=== PATIENT | male | born 1995 | race African-American/Black ===

== ENCOUNTER 2019-06-29 17:58 | Emergency (ER) | payer SELFPAY ==
[~2019-06-29] VITALS: Ht 180.3 cm; Wt 88.5 kg
[2019-06-29 18:35] VITALS: BP 138/66
[2019-06-29 19:55] LABS: INFLUENZA A PATIENT NEGATIVE (NEGATIVE); INFLUENZA B PATIENT NEGATIVE (NEGATIVE)
[2019-06-29] MEDS ORDERED: AZIT250T6 PO (20:59)
--- NOTE | 2019-06-29 20:59 | PHYS DOC ---
Past Medical History Past Medical History: No Pertinent History (MAGO SIMS APRN) Past Surgical History: No Surgical History (MAGO SIMS APRN) Alcohol Use: None Drug Use: None (MAGO SIMS APRN) Attending Signature I have participated in the care of this patient and I have reviewed and agree with all pertinent clinical information above including history, exam, and recommendations. (KARRI LAWTON MD) Adult General Chief Complaint Chief Complaint: FLU SYMPTOM HPI HPI Patient is a 23 year old male who presents with nausea, cough, chest congestion and chills. Patient states is all started today. Patient states he's been taking Mucinex today. (MAGO SIMS APRN) Review of Systems Review of Systems Constitutional: fever or chills [] HENT: nasal congestion or sore throat [] Respiratory: cough or denies shortness of breath [] All other systems were reviewed and found to be within normal limits, except as documented in this note. (MAGO SIMS APRN) Allergies Allergies Allergies Coded Allergies Type Severity Reaction Last Updated Verified No Known Drug Allergies 06/29/19 No (KARRI LAWTON MD) Physical Exam Physical Exam Constitutional: Well developed, well nourished, no acute distress, non-toxic appearance. [] HENT: Normocephalic, atraumatic, bilateral external ears normal, oropharynx moist, no oral exudates, nose normal. Bilateral Tympanics pink. [] Eyes: PERRLA, EOMI, conjunctiva normal, no discharge. [] Neck: Normal range of motion, no tenderness, supple, no stridor. [] Cardiovascular:Heart rate regular rhythm, no murmur [] Lungs & Thorax: Bilateral breath sounds clear to auscultation [] Abdomen: Bowel sounds normal, soft, no tenderness, no masses, no pulsatile masses. [] Skin: Warm, dry, no erythema, no rash. [] Back: No tenderness, no CVA tenderness. [] Extremities: No tenderness, no cyanosis, no clubbing, ROM intact, no edema. [] Neurologic: Alert and oriented X 3, normal motor function, normal sensory function, no focal deficits noted. [] Psychologic: Affect normal, judgement normal, mood normal. [] (MAGO SIMS APRN) Current Patient Data Vital Signs Vital Signs Date Time Temp Pulse Resp B/P (MAP) Pulse Ox O2 Delivery O2 Flow Rate FiO2 06/29/19 18:35 98.5 70 14 138/66 (90) 97 Room Air 98.5 (KARRI LAWTON MD) Lab Values Laboratory Tests Test 06/29/19 18:38 Influenza Type A Antigen Negative (NEGATIVE) Influenza Type B Antigen Negative (NEGATIVE) (KARRI LAWTON MD) EKG EKG [] (MAGO SIMS APRN) Radiology/Procedures Radiology/Procedures [] (MAGO SIMS APRN) Impressions: [facility] [address] [address] IMAGING REPORT Signed PATIENT: MARQUIS CHRISTIANA LACCOUNT: [id number] : 1995 LOCATION: ER AGE: 23 SEX: M EXAM STATUS: DEP ER ORD. PHYSICIAN: MAGO SIMS APRN REASON: COUGH PROCEDURE: CHEST PA & LATERAL EXAM: PA and Lateral Views of the Chest DATE: 06/29/2019 8:02 PM INDICATION: Cough COMPARISON: No Prior FINDINGS: The heart is not enlarged. Mediastinal and hilar contours are normal. No focal parenchymal airspace opacity. No pleural effusion or pneumothorax. IMPRESSION: 1. No radiographic evidence for acute cardiopulmonary process. Electronically signed by: Jovan Cheung MD (06/29/2019 10:47 PM) [facility] DICTATED and SIGNED BY: JOVAN CHEUNG MD DATE: 06/29/19 4387 (MAGO SIMS APRN) Course & Med Decision Making Course & Med Decision Making Influenza negative. Bilateral tympanic syrup pink in color. Lungs are clear to auscultation all lobes. Throat is pink without exudates or swelling. Alert and oriented. Ambulatory with a steady gait. Speaks in full clear sentences. Skin pink warm and dry. Vital signs within normal limits. Patient denies nausea, vomiting, syncope, headache, visual changes, numbness or tingling, shortness of breath, chest pain, abdominal pain, diarrhea. Chest x-ray shows no acute findings. (MAGO SIMS APRN) Dragon Disclaimer Dragon Disclaimer This electronic medical record was generated, in whole or in part, using a voice recognition dictation system. (MAGO SIMS APRN) Departure Departure Impression: Primary Impression: Cough Additional Impression: Nasal congestion Disposition: 01 HOME, SELF-CARE Condition: STABLE Referrals: NO PCP (PCP) Patient Instructions: Cough, Adult, Fever, Adult Additional Instructions: Take medications as prescribed. Follow up with primary care provider. Scripts Azithromycin (AZITHROMYCIN TABLET) 250 Mg Tablet 1 PKG PO UD for 5 Days, #6 TAB 0 Refills 2 the first day followed by 1 for days 2-5 Prov: MAGO SIMS APRN 06/29/19 Problem Qualifiers MAGO SIMS APRN Jun 29, 2019 20:59 KARRI LAWTON MD Jun 30, 2019 03:01
--- NOTE | 2019-06-29 22:50 | RAD ---
EXAM: PA and Lateral Views of the Chest DATE: 06/29/2019 8:02 PM INDICATION: Cough COMPARISON: No Prior FINDINGS: The heart is not enlarged. Mediastinal and hilar contours are normal. No focal parenchymal airspace opacity. No pleural effusion or pneumothorax. IMPRESSION: 1. No radiographic evidence for acute cardiopulmonary process. Electronically signed by: Jovan Cheung MD (06/29/2019 10:47 PM) [facility]
== END 2019-06-29 21:04 | disposition home or self-care (01) ==
LOC: ER 17:58
DX: R05 Cough (principal); R09.81 Nasal congestion; R11.0 Nausea; R68.83 Chills (without fever)
CPT/HCPCS: 71046; 87804; 99285-25